=== PATIENT | female | born 1965 | race Hispanic/Latino ===

== ENCOUNTER → 2019-09-29 | Outpatient (CLI) | payer BC ==
[~2019-09-29] MED LIST: IOHEXOL-350 50ML VIAL IV ONE
== END | disposition home or self-care (01) ==
LOC: RAH 12:59
PROVIDERS: ATTEND Family Medicine
DX: R59.0 Localized enlarged lymph nodes (principal)
CPT/HCPCS: 70492; Q9967

== ENCOUNTER 2019-11-05 09:01 | Emergency (ER) | payer BC ==
[2019-11-05] MEDS ORDERED: DICYCLOMINE HCL 10 MG/ML 2ML AMP IM ONE (09:29)
[2019-11-05] MEDS ORDERED: SODIUM CHLORIDE 0.9% 1000ML 1,000 ML IV ONE (10:59)
[2019-11-05] MEDS ORDERED: KETOROLAC TROMETHAMINE 30MG/ML ONE (10:59)
[2019-11-05] MEDS ORDERED: ONDANSETRON HCL 4 MG/2 ML VIAL ONE (11:24)
[2019-11-05] MEDS ORDERED: MORPHINE SULFATE 2 MG/ML 1ML SYG ONE (11:25)
[2019-11-05] MEDS ORDERED: PROCHLORPERAZINE EDISYLATE 10 MG/2 ML VIAL ONE (11:50)
== END 2019-11-05 12:06 | disposition home or self-care (01) ==
LOC: EDH 09:01
DX: N13.2 Hydronephrosis with renal and ureteral calculous obstruction (principal); I10 Essential (primary) hypertension; F41.9 Anxiety disorder, unspecified; R11.2 Nausea with vomiting, unspecified
CPT/HCPCS: 36415; 74176; 80053; 81001; 82150; 83690; 85025; 87088; 96361; 96372; 96374; 96375; 99285; J0500; J0780; J1885; J2405; J7030

== ENCOUNTER 2019-11-06 15:59 | Inpatient (IN) | payer BC ==
[~2019-11-06] VITALS: Ht 160 cm; Wt 72.2 kg
[2019-11-06] MEDS ORDERED: TRAMADOL HCL 50 MG TABLET ONE (16:52)
[2019-11-06 17:10] LABS: BASOPHILS % (AUTO) 0.4 % (0.0-5.0); EOSINOPHILS % (AUTO) 2.3 % (0.0-8.0); HEMATOCRIT 34.9 % (36-48); LYMPHOCYTES % (AUTO) 33.3 % (21.0-51.0); MEAN CORPUSCULAR HEMOGLOBIN 23.3 pg (27.0-33.0); MEAN CORPUSCULAR HGB CONC 30.9 g/dL (32.0-36.0); MEAN CORPUSCULAR VOLUME 75.2 fL (79-99); MONOCYTES % (AUTO) 6.4 % (3.0-13.0); NEUTROPHILS % (AUTO) 57.4 % (40.0-77.0); PLATELET COUNT (AUTO) 337 K/uL (130-400); RED BLOOD CELL COUNT(AUTO) 4.64 MIL/uL (4.00-5.50); RED CELL DISTRIBUTION WIDTH 16.4 % (11.0-15.5); WHITE BLOOD COUNT (AUTO) 9.2 K/uL (4.8-10.8)
[2019-11-06 17:25] LABS: CREATININE 1.3 mg/dL (0.5-1.5); POTASSIUM 3.5 mmol/L (3.5-5.1)
[2019-11-06 17:30] LABS: ALBUMIN 3.2 g/dL (3.5-5.0); BILIRUBIN,TOTAL 0.3 mg/dL (0.2-1.0); TOTAL PROTEIN, SERUM 7.2 g/dL (6.0-8.3)
[2019-11-06 17:49] LABS: INR 0.98 (0.85-1.15); PARTIAL THROMBOPLASTIN TIME 26.1 SEC (26.3-35.5); PROTHROMBIN TIME 10.6 SEC (9.6-11.6)
[2019-11-06 17:55] LABS: APPEARANCE,URINE Cloudy (CLEAR); BILIRUBIN,URINE Negative (NEGATIVE); COLOR,URINE Yellow (YELLOW); GLUCOSE, URINE (UA) Negative (NEGATIVE); KETONES,URINE Trace mg/dL (NEGATIVE); LEUKOCYTE ESTERASE ,URINE Small (NEGATIVE); NITRATE,URINE Negative (NEGATIVE); OCCULT BLOOD,URINE Negative (NEGATIVE); PROTEIN,URINE Negative (NEGATIVE)
[2019-11-06 18:02] LABS: RBC,URINE 0-1 /HPF (0-1)
[2019-11-06 18:03] LABS: BACTERIA,URINE Rare /HPF (None Seen); SQUAMOUS EPITHELIAL CELL,UR Moderate /HPF (0-2); YEAST,URINE BUDDING Few /HPF (None Seen)
[2019-11-06] MEDS ORDERED: CEFTRIAXONE SODIUM 1 GM ONE (19:25)
[2019-11-06] MEDS: LACTATED RINGERS 1000ML 1,000 ML IV SCH (21:15)
[2019-11-06] MEDS ORDERED: ONDANSETRON HCL 4 MG/2 ML VIAL IV PRN (21:15)
[2019-11-06] MEDS ORDERED: KETOROLAC TROMETHAMINE 15MG/ML IV PRN (21:15)
[2019-11-06] MEDS ORDERED: LACTATED RINGERS 1000ML 1,000 ML IV ONE (21:57)
[2019-11-06] MEDS ORDERED: FAMOTIDINE/PF 20 MG/2 ML VIAL IV ONE (21:58)
[2019-11-07] VITALS (23 sets, daily range): BP systolic 13–151; BP diastolic 46–87
[2019-11-07] MEDS ORDERED: ALPR2TAB7 PO (04:02)
[2019-11-07] MEDS ORDERED: METO200T49 PO (04:02)
[2019-11-07] MEDS ORDERED: TAMS-1 PO (04:02)
[2019-11-07] MEDS ORDERED: LOSA25TA41 PO (04:02)
[2019-11-07 06:27] LABS: BASOPHILS % (AUTO) 0.4 % (0.0-5.0); EOSINOPHILS % (AUTO) 2.4 % (0.0-8.0); HEMATOCRIT 31.6 % (36-48); LYMPHOCYTES % (AUTO) 38.8 % (21.0-51.0); MEAN CORPUSCULAR HEMOGLOBIN 23.1 pg (27.0-33.0); MEAN CORPUSCULAR VOLUME 74.5 fL (79-99); MONOCYTES % (AUTO) 8.6 % (3.0-13.0); NEUTROPHILS % (AUTO) 49.3 % (40.0-77.0); PLATELET COUNT (AUTO) 305 K/uL (130-400); RED BLOOD CELL COUNT(AUTO) 4.24 MIL/uL (4.00-5.50); RED CELL DISTRIBUTION WIDTH 16.4 % (11.0-15.5); WHITE BLOOD COUNT (AUTO) 8.2 K/uL (4.8-10.8)
[2019-11-07 06:36] LABS: ALBUMIN 2.6 g/dL (3.5-5.0); BILIRUBIN,TOTAL 0.3 mg/dL (0.2-1.0); POTASSIUM 3.4 mmol/L (3.5-5.1); TOTAL PROTEIN, SERUM 6.2 g/dL (6.0-8.3)
[2019-11-07] MEDS ORDERED: POTASSIUM CHLORIDE 20MEQ/100ML 100 ML IV PRN (07:30)
[2019-11-07] MEDS ORDERED: LIDOCAINE HCL-MPF 1% 2ML VIAL IJ PRN (07:30)
[2019-11-07] MEDS ORDERED: MAGNESIUM 2GM PREMIX 50ML 50 ML IV SCH (08:45)
[2019-11-07] MEDS ORDERED: IOHEXOL-350 50ML VIAL IV ONE ×2 (08:53→11:40)
[2019-11-07] MEDS ORDERED: FAMOTIDINE/PF 20 MG/2 ML VIAL IV SCH (09:00)
[2019-11-07] MEDS ORDERED: FLUCONAZOLE 200 MG/NS 100 ML 100 ML IV SCH (09:00)
[2019-11-07] MEDS ORDERED: GLYCOPYRROLATE 1 MG/5 ML SYRINGE ONE (09:38)
[2019-11-07] MEDS ORDERED: ONDANSETRON HCL 4 MG/2 ML VIAL ONE (09:38)
[2019-11-07] MEDS ORDERED: DEXAMETHASONE SOD PHOSPHATE 10MG/ML 1ML VIAL ONE (09:38)
[2019-11-07] MEDS ORDERED: LIDOCAINE PF 2% 5ML ABBOJECT ONE (09:38)
[2019-11-07] MEDS ORDERED: MIDAZOLAM HCL 1 MG/ML 2ML VIAL ONE ×2 (09:38→10:49)
[2019-11-07] MEDS ORDERED: SUCCINYLCHOLINE 200MG/10ML SYR ONE (09:38)
[2019-11-07] MEDS ORDERED: ROCURONIUM 10MG/1ML SYR 10 MG/ML ML ONE (09:39)
[2019-11-07] MEDS ORDERED: NEOSTIGMINE 5MG/5ML SYR IV ONE (09:39)
[2019-11-07] MEDS ORDERED: PROPOFOL 10 MG/ML 20ML VIAL IV ONE (09:39)
[2019-11-07] MEDS ORDERED: FENTANYL CITRATE PF 50 MCG/1 ML 2ML VIAL ONE (09:39)
[2019-11-07] MEDS ORDERED: ALPRAZOLAM 1 MG TAB PO PRN (10:00)
--- NOTE | 2019-11-07 12:00 | NUR ---
CM NOTE PATIENT OFF THE FLOOR WHEN CM CAME FOR [place]. WILL FOLLOW UP Addendum: 11/07/19 at 1728 by MALORIE DORMAN RN CM Amended: Links added.
[2019-11-07] MEDS ORDERED: MEPERIDINE-PF 25 MG/ML SYG ONE (12:08)
[2019-11-07] MEDS ORDERED: CEFTRIAXONE SODIUM 1 GM IVP SCH (14:00)
[2019-11-07] MEDS: LACTATED RINGERS 1000ML 1,000 ML IV SCH (14:13)
[2019-11-07] MEDS ORDERED: LOSARTAN 50 MG TABLET PO SCH (14:30)
--- NOTE | 2019-11-07 18:31 | NUR ---
PATIENT DISCHARGE PATIENT DISCHARGE, IV DISCONTINUED, CATHLON INTACT, BLEEDING CONTROLLED, PATIENT TOLERATED WITHOUT INCIDENT. DISCUSSED WITH PATIENT MEDICATIONS AND THE IMPORTANCE OF FOLLOWING UP WITH DR. MATA NEXT WEDNESDAY FOR STENT REMOVAL, AND THAT SHE NEEDED TO CALL FOR APPOINTMENT. PATIENT STATED SHE UNDERSTOOD AND HAD NO QUESTIONS.
[2019-11-08] MEDS ORDERED: LOSARTAN 50 MG TABLET PO SCH (09:00)
[2019-11-08] MEDS ORDERED: METOPROLOL TARTRATE 50 MG TAB PO SCH (09:00)
== END 2019-11-07 19:00 | disposition home or self-care (01) | DRG 661 ==
LOC: EDH 15:59 → EDHIP 21:09 → 3AH 11-07 02:04
PROVIDERS: ADMIT Internal Medicine; ATTEND Internal Medicine
PROC: 0TC78ZZ Extirpation of Matter from Left Ureter, Via Natural or Artificial Opening Endoscopic (ICD-10-PCS; principal; 2019-11-07 10:42)
PROC: 0T778DZ Dilation of Left Ureter with Intraluminal Device, Via Natural or Artificial Opening Endoscopic (ICD-10-PCS; 2019-11-07 10:42)
PROC: BT171ZZ Fluoroscopy of Left Ureter using Low Osmolar Contrast (ICD-10-PCS; 2019-11-07 10:42)
DX: N13.6 Pyonephrosis (principal); I10 Essential (primary) hypertension; F41.9 Anxiety disorder, unspecified; Z90.721 Acquired absence of ovaries, unilateral
CPT/HCPCS: 36415; 74018; 80053; 81001; 82150; 82360; 83690; 83735; 85025; 85610; 85730; 87088; A4354; C1758; C1769; C1894; C2617; G0378; J0330; J0696; J1100; J1450; J1885; J2001; J2175; J2250; J2405; J2704; J2710; J3010; J3475; J3490; J7030; J7120; Q9967